=== PATIENT | female | born 1970 | race Caucasian/White ===

== ENCOUNTER 2018-07-02 19:48 | Emergency (ER) | payer OTHER, MEDICAID, SELFPAY ==
[2018-07-02 19:55] VITALS: BP 166/94; PULSE 82; RESP 18; TEMP 37.4; O2SAT 99
--- NOTE | 2018-07-02 20:40 | ED.ABDPAIN ---
HPI - Abdominal Pain <Riana Evans PA-C - Last Filed: 07/02/18 22:36> General Chief Complaint: Abdominal Pain Stated Complaint: HAD PROCEDURE THIS MORING HURTS NOW Time Seen by Provider: 07/02/18 20:03 Source: patient Mode of arrival: ambulatory Limitations: no limitations History of Present Illness HPI narrative: this 47-year-old female comes in due to exacerbation of chronic abdominal pain. She states that she has been undergoing evaluation for chronic abdominal pain in the epigastric area. She states that she has had this pain for 3 or 4 months and has had ongoing evaluation shooting lab work, ultrasound and CT with contrast. There were no specific findings, so she was undergoing endoscopy today. She states that she does not know any of the results of that procedure, but has noticed increased pain today following the procedure. She states that the is in the same place as usual in the upper abdomen. 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 She has felt somewhat full more quickly. She says she has had frequent nausea but no vomiting. She states that she has lost some weight about 10 lb since onset. She states that she has been drinking normal fluids and has eaten since she returned home today. She has had 4 episodes of diarrhea since she returned home, no blood in the stools. She does not have any chest pain or dyspnea. She states that she has chronic left-sided weakness and frequent falls which are unchanged. She is not having any throat pain, hoarseness, cough, or other new complaints such as fever. She denies any urinary symptoms. She denies any recent antibiotics or dietary changes, nor any known exposures Related Data Home Medications Medication Instructions Recorded Confirmed LEVOTHYROXINE SODIUM 100 mcg PO QDAY@0600 #0 04/09/11 citalopram 40 mg PO QDAY #0 04/09/11 lorazepam [Ativan] 0.5 mg PO QAM #0 04/09/11 lamotrigine [Lamictal] 50 mg PO BID #0 08/17/11 aspirin [Aspir-Low] 07/02/18 bupropion HCl 07/02/18 fexofenadine 1 tab PO DAILY 07/02/18 07/02/18 lorazepam PO 07/02/18 omeprazole 1 tab PO DAILY 07/02/18 07/02/18 propranolol 07/02/18 propranolol PO 07/02/18 trazodone 07/02/18 venlafaxine tab PO 07/02/18 Previous Rx's Medication Instructions Recorded nitrofurantoin monohyd/m-cryst 100 mg PO BID #14 cap 07/03/18 [Macrobid] Allergies Allergy/AdvReac Type Severity Reaction Status Date / Time Penicillins Allergy Unknown Hives Verified 07/02/18 21:10 sulfadiazine Allergy Unknown THROAT Verified 07/02/18 21:10 SWELLS divalproex sodium Allergy Verified 07/02/18 20:08 [From Depakote] lithium Allergy Verified 07/02/18 20:08 Review of Systems <Riana Evans PA-C - Last Filed: 07/02/18 22:36> Review of Systems All systems reviewed & are unremarkable except as noted in HPI and below Exam <Riana Evans PA-C - Last Filed: 07/02/18 22:36> Narrative Exam Narrative: GENERAL APPEARANCE: Patient sitting comfortably, in no distress. HEENT: PERRL, EOMI, no scleral icterus NECK: Supple LUNGS: breath sounds somewhat coarse without wheezes or crackles HEART: Rate and rhythm regular, normal S1 and S2, no S3 or S4. CHEST: Tender over the xiphoid. No TTP elsewhere, no crepitus ABDOMEN: Soft, nondistended, bowel sounds present x 4 quadrants, no masses palpable, no hepatosplenomegaly. no CVAT. Localized tenderness over the epigastrium without guarding or rebound EXTREMITIES: No edema, no cyanosis, no calf tenderness DERMATOLOGIC: No jaundice or exanthem NEUROLOGIC: Alert and oriented with normal speech and coordination Initial Vital Signs Initial Vital Signs: Vital Signs Temperature 99.4 F 07/02/18 19:55 Pulse Rate 82 07/02/18 19:55 Respiratory Rate 18 07/02/18 19:55 Blood Pressure 166/94 H 07/02/18 19:55 Pulse Oximetry 99 07/02/18 19:55 <Daniel Villasenor DO - Last Filed: 07/03/18 02:26> Initial Vital Signs Initial Vital Signs: Vital Signs Temperature 99.4 F 07/02/18 19:55 Pulse Rate 82 07/02/18 19:55 Respiratory Rate 18 07/02/18 19:55 Blood Pressure 166/94 H 07/02/18 19:55 Pulse Oximetry 99 07/02/18 19:55 Course <Riana Evans PA-C - Last Filed: 07/02/18 22:36> Orders Ordered: ED Orders 07/02/18 20:22 EKG-12 Lead Stat 07/02/18 20:40 Complete Blood Count AUTO DIFF Stat Comprehensive Metabolic Panel Stat Lipase Stat 07/02/18 20:55 XR abdomen min 2V Stat XR chest 2V Stat 07/02/18 22:10 Urine Culture Stat Urine Microscopic Stat 07/02/18 22:13 CT abdomen pelvis w con Stat Discontinued Medications Hydromorphone HCl (Dilaudid) 1 mg IV NOW ONE Stop: 07/02/18 22:14 Last Admin: 07/02/18 22:24 Dose: 1 mg Sodium Chloride (Normal Saline 0.9%) 1,000 mls @ 1,000 mls/hr IV BOLUS ONE Stop: 07/02/18 22:01 Last Infusion: 07/02/18 22:01 Dose: 0 mls/hr Admin: 07/02/18 21:19 Dose: 1,000 mls/hr Ketorolac Tromethamine (Toradol) 15 mg IV NOW ONE Stop: 07/02/18 20:56 Last Admin: 07/02/18 21:19 Dose: 15 mg Ondansetron HCl (Zofran) 4 mg IV NOW ONE Stop: 07/02/18 20:56 Last Admin: 07/02/18 21:19 Dose: 4 mg Ondansetron HCl (Zofran Odt Prepack) 1 bottle MISC SEEINSTR ONE Stop: 07/02/18 23:59 Last Admin: 07/03/18 00:13 Dose: 1 bottle Oxycodone/Acetaminophen (Endocet 5/325 Prepack) 1 bottle MISC SEEINSTR ONE Stop: 07/02/18 23:59 Last Admin: 07/03/18 00:13 Dose: 1 bottle Vital Signs - 8 hr 07/02/18 19:55 07/02/18 21:53 07/02/18 23:05 Temperature 99.4 F Pulse Rate 82 68 97 H Respiratory Rate 18 18 18 Blood Pressure 166/94 H Blood Pressure [Left Arm] 128/51 L 113/68 Pulse Oximetry 99 98 97 07/03/18 00:13 07/03/18 00:15 Temperature 99.4 F Pulse Rate 97 H 63 Respiratory Rate 18 16 Blood Pressure 166/94 H 116/52 L Blood Pressure [Left Arm] Pulse Oximetry 97 99 <Danielzayra Villasenor, - Last Filed: 07/03/18 02:26> Orders Ordered: ED Orders 07/02/18 20:22 EKG-12 Lead Stat 07/02/18 20:40 Complete Blood Count AUTO DIFF Stat Comprehensive Metabolic Panel Stat Lipase Stat 07/02/18 20:55 XR abdomen min 2V Stat XR chest 2V Stat 07/02/18 22:10 Urine Culture Stat Urine Microscopic Stat 07/02/18 22:13 CT abdomen pelvis w con Stat Discontinued Medications Hydromorphone HCl (Dilaudid) 1 mg IV NOW ONE Stop: 07/02/18 22:14 Last Admin: 07/02/18 22:24 Dose: 1 mg Sodium Chloride (Normal Saline 0.9%) 1,000 mls @ 1,000 mls/hr IV BOLUS ONE Stop: 07/02/18 22:01 Last Infusion: 07/02/18 22:01 Dose: 0 mls/hr Admin: 07/02/18 21:19 Dose: 1,000 mls/hr Ketorolac Tromethamine (Toradol) 15 mg IV NOW ONE Stop: 07/02/18 20:56 Last Admin: 07/02/18 21:19 Dose: 15 mg Ondansetron HCl (Zofran) 4 mg IV NOW ONE Stop: 07/02/18 20:56 Last Admin: 07/02/18 21:19 Dose: 4 mg Ondansetron HCl (Zofran Odt Prepack) 1 bottle MISC SEEINSTR ONE Stop: 07/02/18 23:59 Last Admin: 07/03/18 00:13 Dose: 1 bottle Oxycodone/Acetaminophen (Endocet 5/325 Prepack) 1 bottle MISC SEEINSTR ONE Stop: 07/02/18 23:59 Last Admin: 07/03/18 00:13 Dose: 1 bottle Vital Signs - 8 hr 07/02/18 19:55 07/02/18 21:53 07/02/18 23:05 Temperature 99.4 F Pulse Rate 82 68 97 H Respiratory Rate 18 18 18 Blood Pressure 166/94 H Blood Pressure [Left Arm] 128/51 L 113/68 Pulse Oximetry 99 98 97 07/03/18 00:13 07/03/18 00:15 Temperature 99.4 F Pulse Rate 97 H 63 Respiratory Rate 18 16 Blood Pressure 166/94 H 116/52 L Blood Pressure [Left Arm] Pulse Oximetry 97 99 MDM - Abdominal Pain <Riana Evans PA-C - Last Filed: 07/02/18 22:36> Lab Data Attestation: I reviewed the patient's lab results. Result diagrams: 07/02/18 20:40 07/02/18 20:40 Lab Results 07/02/18 07/02/18 07/02/18 Range/Units 20:40 20:40 22:10 WBC 7.6 (4.5-11.0) X10^3/uL RBC 4.51 (4.0-5.2) X10^6/uL Hgb 13.6 (12.0-16.0) g/dL Hct 40.3 (36-46) % MCV 89.4 (80-100) fL MCH 30.2 (26-34) PG MCHC 33.8 (30-36) % RDW 14.3 (11.6-14.8) % Plt Count 222 (150-400) X10^3/uL Neut % (Auto) 56.3 (50-75) % Lymph % (Auto) 37.2 (25-40) % Allen % (Auto) 5.0 (3-14) % Eos % (Auto) 0.0 L (2-4) % Baso % (Auto) 1.5 (0-2) % Neut # (Auto) 4300 (6970-2104) /uL Sodium 143 (137-145) mmol/L Potassium 3.9 (3.4-5.1) mmol/L Chloride 105 (98-107) mmol/L Carbon Dioxide 26 (22-32) mmol/L BUN 13 (7-17) mg/dL Creatinine 1.30 H (0.52-1.04) mg/dL Estimated GFR 43.5 L (>60) mL/min BUN/Creatinine Ratio 10.0 (6-22) Glucose 101 H (70-100) mg/dL Calcium 9.5 (8.4-10.2) mg/dL Total Bilirubin 0.4 (0.2-1.3) mg/dL AST 17 (14-36) IU/L ALT 18 (9-52) IU/L Alkaline Phosphatase 103 (38-126) U/L Total Protein 6.3 (6.3-8.2) g/dL Albumin 4.0 (3.5-5.0) g/dL Globulin 2.3 (1.7-4.1) g/dL Albumin/Globulin Ratio 1.7 (1.0-2.8) Lipase 77 (23-300) U/L Urine RBC None seen (0-5/HPF) Urine WBC 10-30/hpf H (0-5/HPF) Ur Squamous Epith Cells 1-5 /hpf Urine Bacteria Many (>30) H (None) Ur Culture Indicated? Specimen cultured Micro UA Comment Not Reportable Point of care testing: Urine Dip Bedside Urine Glucose Negative Bedside Urine Bilirubin - Negative Bedside Urine Ketone - Negative Urine Specific [place] 1.020 Bedside Urine Occult Blood - Negative Bedside Urine pH 6.0 Bedside Urine Protein - Negative Bedside Urine Urobilinogen - Negative Bedside Urine Nitrite - Negative Bedside Urine Leukocytes +++ 500 Esterase Imaging Data Abdominal x-ray: Radiologist's impression: [place] [address] XRay Report Signed Patient: Nela Cantor LMR#: [id number] : 1970Acct:[id number] Age/Sex: 47 / FDate of Service: 07/02/18 Loc: ED Accession Number: [id number] Procedure: XR abdomen min 2V Ordering Provider: Riana Evans P.A-C PROCEDURE: XR ABDOMEN MIN 2V INDICATIONS: pain,chronic with exacerbation, epigastric TECHNIQUE: 2 views of the abdomen were acquired. COMPARISON: None. FINDINGS: Surgical changes and devices: None. Bowel: No pneumoperitoneum. The bowel gas pattern is normal. Mild stool in the right colon. Soft tissues: No masses; visualized solid organ contours appear normal in size. No suspicious abdominal calcifications. Bones: No suspicious bony abnormalities. IMPRESSION: No bowel obstruction. Mild stool Dictated by: Daljit Mcelroy M.D. on 07/02/2018 at 22:02 Approved by: Daljit Mcelroy M.D. on 07/02/2018 at 22:03 Chest x-ray: Radiologist's impression: [address] [address] XRay Report Signed Patient: Nela Cantor LMR#: [id number] : 1970Acct:[id number] Age/Sex: 47 / FDate of Service: 07/02/18 Loc: ED Accession Number: [id number] Procedure: XR abdomen min 2V Ordering Provider: Riana Evans P.A-C PROCEDURE: XR ABDOMEN MIN 2V INDICATIONS: pain,chronic with exacerbation, epigastric TECHNIQUE: 2 views of the abdomen were acquired. COMPARISON: None. FINDINGS: Surgical changes and devices: None. Bowel: No pneumoperitoneum. The bowel gas pattern is normal. Mild stool in the right colon. Soft tissues: No masses; visualized solid organ contours appear normal in size. No suspicious abdominal calcifications. Bones: No suspicious bony abnormalities. IMPRESSION: No bowel obstruction. Mild stool Dictated by: Daljit Mcelroy M.D. on 07/02/2018 at 22:02 Approved by: Daljit Mcelroy M.D. on 07/02/2018 at 22:03 ECG Data Attestation: I personally reviewed and interpreted this ECG as follows: ( sinus arrhythmia, normal axis ) Prior ECG tracings: not available for review <Daniel Villasenor DO - Last Filed: 07/03/18 02:26> Differential Diagnosis Differential diagnosis: Likely abdominal pain Medical Records Attestation: I reviewed the patient's medical records. Lab Data Attestation: I reviewed the patient's lab results. Lab Results 07/02/18 07/02/18 07/02/18 Range/Units 20:40 20:40 22:10 WBC 7.6 (4.5-11.0) X10^3/uL RBC 4.51 (4.0-5.2) X10^6/uL Hgb 13.6 (12.0-16.0) g/dL Hct 40.3 (36-46) % MCV 89.4 (80-100) fL MCH 30.2 (26-34) PG MCHC 33.8 (30-36) % RDW 14.3 (11.6-14.8) % Plt Count 222 (150-400) X10^3/uL Neut % (Auto) 56.3 (50-75) % Lymph % (Auto) 37.2 (25-40) % Allen % (Auto) 5.0 (3-14) % Eos % (Auto) 0.0 L (2-4) % Baso % (Auto) 1.5 (0-2) % Neut # (Auto) 4300 (9343-2991) /uL Sodium 143 (137-145) mmol/L Potassium 3.9 (3.4-5.1) mmol/L Chloride 105 (98-107) mmol/L Carbon Dioxide 26 (22-32) mmol/L BUN 13 (7-17) mg/dL Creatinine 1.30 H (0.52-1.04) mg/dL Estimated GFR 43.5 L (>60) mL/min BUN/Creatinine Ratio 10.0 (6-22) Glucose 101 H (70-100) mg/dL Calcium 9.5 (8.4-10.2) mg/dL Total Bilirubin 0.4 (0.2-1.3) mg/dL AST 17 (14-36) IU/L ALT 18 (9-52) IU/L Alkaline Phosphatase 103 (38-126) U/L Total Protein 6.3 (6.3-8.2) g/dL Albumin 4.0 (3.5-5.0) g/dL Globulin 2.3 (1.7-4.1) g/dL Albumin/Globulin Ratio 1.7 (1.0-2.8) Lipase 77 (23-300) U/L Urine RBC None seen (0-5/HPF) Urine WBC 10-30/hpf H (0-5/HPF) Ur Squamous Epith Cells 1-5 /hpf Urine Bacteria Many (>30) H (None) Ur Culture Indicated? Specimen cultured Micro UA Comment Not Reportable Point of care testing: Urine Dip Bedside Urine Glucose Negative Bedside Urine Bilirubin - Negative Bedside Urine Ketone - Negative Urine Specific [place] 1.020 Bedside Urine Occult Blood - Negative Bedside Urine pH 6.0 Bedside Urine Protein - Negative Bedside Urine Urobilinogen - Negative Bedside Urine Nitrite - Negative Bedside Urine Leukocytes +++ [address] scan - abdomen: Radiologist's impression: [facility] Discharge Plan Departure Patient Disposition: Home Clinical Impression: Abdominal pain, acute, epigastric, UTI (urinary tract infection) Discharge Date/Time: 07/03/18 00:40 Interventions: ED Discharge Assessment Last Done: 07/03/18 00:15 Instructions: DI for Epigastric Pain Activity Restrictions/Additional Instructions: 1. Drink plenty of fluids with frequent small sips. 2. For the next 24 hours a clear liquid diet is advised. After that please employ a brat diet which would include bananas, rice, apples, toast. 3. Please take medications as directed. 4. Please follow-up with your doctor in the next 1-2 days. Call the office for an appointment. 5. Please return to the emergency Department for any worsening or persistent symptoms, such as increasing pain or fever. Prescriptions: New nitrofurantoin monohyd/m-cryst [Macrobid] 100 mg capsule 100 mg PO BID Qty: 14 RF: 0 No Action lorazepam [Ativan] 0.5 MG tablet 0.5 mg PO QAM Qty: 0 RF: 0 LEVOTHYROXINE SODIUM 100 mcg PO QDAY@0600 Qty: 0 RF: 0 citalopram 40 MG tablet 40 mg PO QDAY Qty: 0 RF: 0 lamotrigine [Lamictal] 25 MG tablet 50 mg PO BID Qty: 0 RF: 0 fexofenadine 180 mg tablet 1 tab PO DAILY RF: 0 omeprazole 20 mg tablet,delayed release (DR/EC) 1 tab PO DAILY RF: 0 venlafaxine 150 mg capsule,extended release 24hr PO RF: 0 propranolol 40 mg tablet PO RF: 0 bupropion HCl 200 mg tablet sustained-release 12 hr RF: 0 lorazepam 1 mg tablet PO RF: 0 trazodone 100 mg tablet RF: 0 aspirin [Aspir-Low] 81 mg tablet,delayed release (DR/EC) RF: 0 propranolol 40 mg tablet RF: 0 Referrals: Beatrice Irvin ARNP [Non-Staff] - ED Cosign/Signout <Riana Evans PA-C - Last Filed: 07/02/18 22:36> Sign Out Provider Sign Out Attestation: patient had improved initially after Zofran and Toradol, however after she got up to use the restroom, she had acutely worsening epigastric pain. No acute findings on lab work or x-rays, however reviewed with Dr. Villasenor who agrees reasonable to proceed with abdominal CT given patient's acutely worsening symptoms after endoscopy. She did have white cells in her urine so micro is pending as well. Dilaudid ordered for pain. He will evaluate patient and review CT results. <Daniel Villasenor, DO - Last Filed: 07/03/18 02:26> Cosign ED Attending Cosignature Attestation: I was immediately available in the department for consultation. Documentation has been reviewed. I agree with assessment and plan.
--- NOTE | 2018-07-02 20:55 | DI.RAD.S_ITS ---
PROCEDURE: XR CHEST 2V INDICATIONS: xiphoid and epigastric pain TECHNIQUE: 2 views of the chest were acquired. COMPARISON: None. FINDINGS: Surgical changes and devices: None. Lungs and pleura: No pleural effusions or pneumothorax. Diffuse scarring/atelectasis. No acute consolidation. Mediastinum: Mediastinal contours are normal. Heart size is normal. Bones and chest wall: No suspicious bony abnormalities. Soft tissues appear unremarkable. IMPRESSION: No acute consolidation. Dictated by: Daljit Mcelroy M.D. on 07/02/2018 at 22:01 Approved by: Daljit Mcelroy M.D. on 07/02/2018 at 22:02
--- NOTE | 2018-07-02 20:55 | DI.RAD.S_ITS ---
PROCEDURE: XR ABDOMEN MIN 2V INDICATIONS: pain,chronic with exacerbation, epigastric TECHNIQUE: 2 views of the abdomen were acquired. COMPARISON: None. FINDINGS: Surgical changes and devices: None. Bowel: No pneumoperitoneum. The bowel gas pattern is normal. Mild stool in the right colon. Soft tissues: No masses; visualized solid organ contours appear normal in size. No suspicious abdominal calcifications. Bones: No suspicious bony abnormalities. IMPRESSION: No bowel obstruction. Mild stool Dictated by: Daljit Mcelroy M.D. on 07/02/2018 at 22:02 Approved by: Daljit Mcelroy M.D. on 07/02/2018 at 22:03
--- NOTE | 2018-07-02 21:09 | ED_ITS ---
HPI - Abdominal Pain <Riana Evans PA-C - Last Filed: 07/02/18 22:36> General Chief Complaint: Abdominal Pain Stated Complaint: HAD PROCEDURE THIS MORING HURTS NOW Time Seen by Provider: 07/02/18 20:03 Source: patient Mode of arrival: ambulatory Limitations: no limitations History of Present Illness HPI narrative: this 47-year-old female comes in due to exacerbation of chronic abdominal pain. She states that she has been undergoing evaluation for chronic abdominal pain in the epigastric area. She states that she has had this pain for 3 or 4 months and has had ongoing evaluation shooting lab work, ultrasound and CT with contrast. There were no specific findings, so she was undergoing endoscopy today. She states that she does not know any of the results of that procedure, but has noticed increased pain today following the procedure. She states that the is in the same place as usual in the upper abdomen. over the intermission coordinator, it has increased with bending at the waist or lifting heavy objects as well as eating some acidic foods except for drinking lemonade. She has felt somewhat full more quickly. She says she has had frequent nausea but no vomiting. She states that she has lost some weight about 10 lb since onset. She states that she has been drinking normal fluids and has eaten since she returned home today. She has had 4 episodes of diarrhea since she returned home, no blood in the stools. She does not have any chest pain or dyspnea. She states that she has chronic left-sided weakness and frequent falls which are unchanged. She is not having any throat pain, hoarseness, cough, or other new complaints such as fever. She denies any urinary symptoms. She denies any recent antibiotics or dietary changes, nor any known exposures Related Data Home Medications Medication Instructions Recorded Confirmed LEVOTHYROXINE SODIUM 100 mcg PO QDAY@0600 #0 04/09/11 citalopram 40 mg PO QDAY #0 04/09/11 lorazepam [Ativan] 0.5 mg PO QAM #0 04/09/11 lamotrigine [Lamictal] 50 mg PO BID #0 08/17/11 aspirin [Aspir-Low] 07/02/18 bupropion HCl 07/02/18 fexofenadine 1 tab PO DAILY 07/02/18 07/02/18 lorazepam PO 07/02/18 omeprazole 1 tab PO DAILY 07/02/18 07/02/18 propranolol 07/02/18 propranolol PO 07/02/18 trazodone 07/02/18 venlafaxine tab PO 07/02/18 Previous Rx's Medication Instructions Recorded nitrofurantoin monohyd/m-cryst 100 mg PO BID #14 cap 07/03/18 [Macrobid] Allergies Allergy/AdvReac Type Severity Reaction Status Date / Time Penicillins Allergy Unknown Hives Verified 07/02/18 21:10 sulfadiazine Allergy Unknown THROAT Verified 07/02/18 21:10 SWELLS divalproex sodium Allergy Verified 07/02/18 20:08 [From Depakote] lithium Allergy Verified 07/02/18 20:08 Review of Systems <Riana Evans PA-C - Last Filed: 07/02/18 22:36> Review of Systems All systems reviewed & are unremarkable except as noted in HPI and below Exam <Riana Evans PA-C - Last Filed: 07/02/18 22:36> Narrative Exam Narrative: GENERAL APPEARANCE: Patient sitting comfortably, in no distress. HEENT: PERRL, EOMI, no scleral icterus NECK: Supple LUNGS: breath sounds somewhat coarse without wheezes or crackles HEART: Rate and rhythm regular, normal S1 and S2, no S3 or S4. CHEST: Tender over the xiphoid. No TTP elsewhere, no crepitus ABDOMEN: Soft, nondistended, bowel sounds present x 4 quadrants, no masses palpable, no hepatosplenomegaly. no CVAT. Localized tenderness over the epigastrium without guarding or rebound EXTREMITIES: No edema, no cyanosis, no calf tenderness DERMATOLOGIC: No jaundice or exanthem NEUROLOGIC: Alert and oriented with normal speech and coordination Initial Vital Signs Initial Vital Signs: Vital Signs Temperature 99.4 F 07/02/18 19:55 Pulse Rate 82 07/02/18 19:55 Respiratory Rate 18 07/02/18 19:55 Blood Pressure 166/94 H 07/02/18 19:55 Pulse Oximetry 99 07/02/18 19:55 <Daniel Villasenor DO - Last Filed: 07/03/18 02:26> Initial Vital Signs Initial Vital Signs: Vital Signs Temperature 99.4 F 07/02/18 19:55 Pulse Rate 82 07/02/18 19:55 Respiratory Rate 18 07/02/18 19:55 Blood Pressure 166/94 H 07/02/18 19:55 Pulse Oximetry 99 07/02/18 19:55 Course <Riana Evans PA-C - Last Filed: 07/02/18 22:36> Orders Ordered: ED Orders 07/02/18 20:22 EKG-12 Lead Stat 07/02/18 20:40 Complete Blood Count AUTO DIFF Stat Comprehensive Metabolic Panel Stat Lipase Stat 07/02/18 20:55 XR abdomen min 2V Stat XR chest 2V Stat 07/02/18 22:10 Urine Culture Stat Urine Microscopic Stat 07/02/18 22:13 CT abdomen pelvis w con Stat Discontinued Medications Hydromorphone HCl (Dilaudid) 1 mg IV NOW ONE Stop: 07/02/18 22:14 Last Admin: 07/02/18 22:24 Dose: 1 mg Sodium Chloride (Normal Saline 0.9%) 1,000 mls @ 1,000 mls/hr IV BOLUS ONE Stop: 07/02/18 22:01 Last Infusion: 07/02/18 22:01 Dose: 0 mls/hr Admin: 07/02/18 21:19 Dose: 1,000 mls/hr Ketorolac Tromethamine (Toradol) 15 mg IV NOW ONE Stop: 07/02/18 20:56 Last Admin: 07/02/18 21:19 Dose: 15 mg Ondansetron HCl (Zofran) 4 mg IV NOW ONE Stop: 07/02/18 20:56 Last Admin: 07/02/18 21:19 Dose: 4 mg Ondansetron HCl (Zofran Odt Prepack) 1 bottle MISC SEEINSTR ONE Stop: 07/02/18 23:59 Last Admin: 07/03/18 00:13 Dose: 1 bottle Oxycodone/Acetaminophen (Endocet 5/325 Prepack) 1 bottle MISC SEEINSTR ONE Stop: 07/02/18 23:59 Last Admin: 07/03/18 00:13 Dose: 1 bottle Vital Signs - 8 hr 07/02/18 19:55 07/02/18 21:53 07/02/18 23:05 Temperature 99.4 F Pulse Rate 82 68 97 H Respiratory Rate 18 18 18 Blood Pressure 166/94 H Blood Pressure [Left Arm] 128/51 L 113/68 Pulse Oximetry 99 98 97 07/03/18 00:13 07/03/18 00:15 Temperature 99.4 F Pulse Rate 97 H 63 Respiratory Rate 18 16 Blood Pressure 166/94 H 116/52 L Blood Pressure [Left Arm] Pulse Oximetry 97 99 <Danielzayar Villasenor, - Last Filed: 07/03/18 02:26> Orders Ordered: ED Orders 07/02/18 20:22 EKG-12 Lead Stat 07/02/18 20:40 Complete Blood Count AUTO DIFF Stat Comprehensive Metabolic Panel Stat Lipase Stat 07/02/18 20:55 XR abdomen min 2V Stat XR chest 2V Stat 07/02/18 22:10 Urine Culture Stat Urine Microscopic Stat 07/02/18 22:13 CT abdomen pelvis w con Stat Discontinued Medications Hydromorphone HCl (Dilaudid) 1 mg IV NOW ONE Stop: 07/02/18 22:14 Last Admin: 07/02/18 22:24 Dose: 1 mg Sodium Chloride (Normal Saline 0.9%) 1,000 mls @ 1,000 mls/hr IV BOLUS ONE Stop: 07/02/18 22:01 Last Infusion: 07/02/18 22:01 Dose: 0 mls/hr Admin: 07/02/18 21:19 Dose: 1,000 mls/hr Ketorolac Tromethamine (Toradol) 15 mg IV NOW ONE Stop: 07/02/18 20:56 Last Admin: 07/02/18 21:19 Dose: 15 mg Ondansetron HCl (Zofran) 4 mg IV NOW ONE Stop: 07/02/18 20:56 Last Admin: 07/02/18 21:19 Dose: 4 mg Ondansetron HCl (Zofran Odt Prepack) 1 bottle MISC SEEINSTR ONE Stop: 07/02/18 23:59 Last Admin: 07/03/18 00:13 Dose: 1 bottle Oxycodone/Acetaminophen (Endocet 5/325 Prepack) 1 bottle MISC SEEINSTR ONE Stop: 07/02/18 23:59 Last Admin: 07/03/18 00:13 Dose: 1 bottle Vital Signs - 8 hr 07/02/18 19:55 07/02/18 21:53 07/02/18 23:05 Temperature 99.4 F Pulse Rate 82 68 97 H Respiratory Rate 18 18 18 Blood Pressure 166/94 H Blood Pressure [Left Arm] 128/51 L 113/68 Pulse Oximetry 99 98 97 07/03/18 00:13 07/03/18 00:15 Temperature 99.4 F Pulse Rate 97 H 63 Respiratory Rate 18 16 Blood Pressure 166/94 H 116/52 L Blood Pressure [Left Arm] Pulse Oximetry 97 99 MDM - Abdominal Pain <Riana Evans PA-C - Last Filed: 07/02/18 22:36> Lab Data Attestation: I reviewed the patient's lab results. Result diagrams: 07/02/18 20:40 07/02/18 20:40 Lab Results 07/02/18 07/02/18 07/02/18 Range/Units 20:40 20:40 22:10 WBC 7.6 (4.5-11.0) X10^3/uL RBC 4.51 (4.0-5.2) X10^6/uL Hgb 13.6 (12.0-16.0) g/dL Hct 40.3 (36-46) % MCV 89.4 (80-100) fL MCH 30.2 (26-34) PG MCHC 33.8 (30-36) % RDW 14.3 (11.6-14.8) % Plt Count 222 (150-400) X10^3/uL Neut % (Auto) 56.3 (50-75) % Lymph % (Auto) 37.2 (25-40) % [place] % (Auto) 5.0 (3-14) % Eos % (Auto) 0.0 L (2-4) % Baso % (Auto) 1.5 (0-2) % Neut # (Auto) 4300 (8144-3643) /uL Sodium 143 (137-145) mmol/L Potassium 3.9 (3.4-5.1) mmol/L Chloride 105 (98-107) mmol/L Carbon Dioxide 26 (22-32) mmol/L BUN 13 (7-17) mg/dL Creatinine 1.30 H (0.52-1.04) mg/dL Estimated GFR 43.5 L (>60) mL/min BUN/Creatinine Ratio 10.0 (6-22) Glucose 101 H (70-100) mg/dL Calcium 9.5 (8.4-10.2) mg/dL Total Bilirubin 0.4 (0.2-1.3) mg/dL AST 17 (14-36) IU/L ALT 18 (9-52) IU/L Alkaline Phosphatase 103 (38-126) U/L Total Protein 6.3 (6.3-8.2) g/dL Albumin 4.0 (3.5-5.0) g/dL Globulin 2.3 (1.7-4.1) g/dL Albumin/Globulin Ratio 1.7 (1.0-2.8) Lipase 77 (23-300) U/L Urine RBC None seen (0-5/HPF) Urine WBC 10-30/hpf H (0-5/HPF) Ur Squamous Epith Cells 1-5 /hpf Urine Bacteria Many (>30) H (None) Ur Culture Indicated? Specimen cultured Micro UA Comment Not Reportable Point of care testing: Urine Dip Bedside Urine Glucose Negative Bedside Urine Bilirubin - Negative Bedside Urine Ketone - Negative Urine Specific [place] 1.020 Bedside Urine Occult Blood - Negative Bedside Urine pH 6.0 Bedside Urine Protein - Negative Bedside Urine Urobilinogen - Negative Bedside Urine Nitrite - Negative Bedside Urine Leukocytes +++ 500 Esterase Imaging Data Abdominal x-ray: Radiologist's impression: [place] [address] XRay Report Signed Patient: Nela Cantor LMR#: [id number] : 1970Acct:[id number] Age/Sex: 47 / FDate of Service: 07/02/18 Loc: ED Accession Number: [id number] Procedure: XR abdomen min 2V Ordering Provider: Riana Evans P.A-C PROCEDURE: XR ABDOMEN MIN 2V INDICATIONS: pain,chronic with exacerbation, epigastric TECHNIQUE: 2 views of the abdomen were acquired. COMPARISON: None. FINDINGS: Surgical changes and devices: None. Bowel: No pneumoperitoneum. The bowel gas pattern is normal. Mild stool in the right colon. Soft tissues: No masses; visualized solid organ contours appear normal in size. No suspicious abdominal calcifications. Bones: No suspicious bony abnormalities. IMPRESSION: No bowel obstruction. Mild stool Dictated by: Daljit Mcelroy M.D. on 07/02/2018 at 22:02 Approved by: Daljit Mcelroy M.D. on 07/02/2018 at 22:03 Chest x-ray: Radiologist's impression: [address] [address] XRay Report Signed Patient: Nela Cantor LMR#: [id number] : 1970Acct:[id number] Age/Sex: 47 / FDate of Service: 07/02/18 Loc: ED Accession Number: [id number] Procedure: XR abdomen min 2V Ordering Provider: Riana Evans P.A-C PROCEDURE: XR ABDOMEN MIN 2V INDICATIONS: pain,chronic with exacerbation, epigastric TECHNIQUE: 2 views of the abdomen were acquired. COMPARISON: None. FINDINGS: Surgical changes and devices: None. Bowel: No pneumoperitoneum. The bowel gas pattern is normal. Mild stool in the right colon. Soft tissues: No masses; visualized solid organ contours appear normal in size. No suspicious abdominal calcifications. Bones: No suspicious bony abnormalities. IMPRESSION: No bowel obstruction. Mild stool Dictated by: Daljit Mcelroy M.D. on 07/02/2018 at 22:02 Approved by: Daljit Mcelroy M.D. on 07/02/2018 at 22:03 ECG Data Attestation: I personally reviewed and interpreted this ECG as follows: ( sinus arrhythmia, normal axis ) Prior ECG tracings: not available for review <Daniel Villasenor DO - Last Filed: 07/03/18 02:26> Differential Diagnosis Differential diagnosis: Likely abdominal pain Medical Records Attestation: I reviewed the patient's medical records. Lab Data Attestation: I reviewed the patient's lab results. Lab Results 07/02/18 07/02/18 07/02/18 Range/Units 20:40 20:40 22:10 WBC 7.6 (4.5-11.0) X10^3/uL RBC 4.51 (4.0-5.2) X10^6/uL Hgb 13.6 (12.0-16.0) g/dL Hct 40.3 (36-46) % MCV 89.4 (80-100) fL MCH 30.2 (26-34) PG MCHC 33.8 (30-36) % RDW 14.3 (11.6-14.8) % Plt Count 222 (150-400) X10^3/uL Neut % (Auto) 56.3 (50-75) % Lymph % (Auto) 37.2 (25-40) % [place] % (Auto) 5.0 (3-14) % Eos % (Auto) 0.0 L (2-4) % Baso % (Auto) 1.5 (0-2) % Neut # (Auto) 4300 (7142-2620) /uL Sodium 143 (137-145) mmol/L Potassium 3.9 (3.4-5.1) mmol/L Chloride 105 (98-107) mmol/L Carbon Dioxide 26 (22-32) mmol/L BUN 13 (7-17) mg/dL Creatinine 1.30 H (0.52-1.04) mg/dL Estimated GFR 43.5 L (>60) mL/min BUN/Creatinine Ratio 10.0 (6-22) Glucose 101 H (70-100) mg/dL Calcium 9.5 (8.4-10.2) mg/dL Total Bilirubin 0.4 (0.2-1.3) mg/dL AST 17 (14-36) IU/L ALT 18 (9-52) IU/L Alkaline Phosphatase 103 (38-126) U/L Total Protein 6.3 (6.3-8.2) g/dL Albumin 4.0 (3.5-5.0) g/dL Globulin 2.3 (1.7-4.1) g/dL Albumin/Globulin Ratio 1.7 (1.0-2.8) Lipase 77 (23-300) U/L Urine RBC None seen (0-5/HPF) Urine WBC 10-30/hpf H (0-5/HPF) Ur Squamous Epith Cells 1-5 /hpf Urine Bacteria Many (>30) H (None) Ur Culture Indicated? Specimen cultured Micro UA Comment Not Reportable Point of care testing: Urine Dip Bedside Urine Glucose Negative Bedside Urine Bilirubin - Negative Bedside Urine Ketone - Negative Urine Specific [place] 1.020 Bedside Urine Occult Blood - Negative Bedside Urine pH 6.0 Bedside Urine Protein - Negative Bedside Urine Urobilinogen - Negative Bedside Urine Nitrite - Negative Bedside Urine Leukocytes +++ [address] scan - abdomen: Radiologist's impression: NAP Discharge Plan Departure Patient Disposition: Home Clinical Impression: Abdominal pain, acute, epigastric, UTI (urinary tract infection) Discharge Date/Time: 07/03/18 00:40 Interventions: ED Discharge Assessment Last Done: 07/03/18 00:15 Instructions: DI for Epigastric Pain Activity Restrictions/Additional Instructions: 1. Drink plenty of fluids with frequent small sips. 2. For the next 24 hours a clear liquid diet is advised. After that please employ a brat diet which would include bananas, rice, apples, toast. 3. Please take medications as directed. 4. Please follow-up with your doctor in the next 1-2 days. Call the office for an appointment. 5. Please return to the emergency Department for any worsening or persistent symptoms, such as increasing pain or fever. Prescriptions: New nitrofurantoin monohyd/m-cryst [Macrobid] 100 mg capsule 100 mg PO BID Qty: 14 RF: 0 No Action lorazepam [Ativan] 0.5 MG tablet 0.5 mg PO QAM Qty: 0 RF: 0 LEVOTHYROXINE SODIUM 100 mcg PO QDAY@0600 Qty: 0 RF: 0 citalopram 40 MG tablet 40 mg PO QDAY Qty: 0 RF: 0 lamotrigine [Lamictal] 25 MG tablet 50 mg PO BID Qty: 0 RF: 0 fexofenadine 180 mg tablet 1 tab PO DAILY RF: 0 omeprazole 20 mg tablet,delayed release (DR/EC) 1 tab PO DAILY RF: 0 venlafaxine 150 mg capsule,extended release 24hr PO RF: 0 propranolol 40 mg tablet PO RF: 0 bupropion HCl 200 mg tablet sustained-release 12 hr RF: 0 lorazepam 1 mg tablet PO RF: 0 trazodone 100 mg tablet RF: 0 aspirin [Aspir-Low] 81 mg tablet,delayed release (DR/EC) RF: 0 propranolol 40 mg tablet RF: 0 Referrals: Beatrice Irvin ARNP [Non-Staff] - ED Cosign/Signout <Riana Evans PA-C - Last Filed: 07/02/18 22:36> Sign Out Provider Sign Out Attestation: patient had improved initially after Zofran and Toradol, however after she got up to use the restroom, she had acutely worsening epigastric pain. No acute findings on lab work or x-rays, however reviewed with Dr. Villasenor who agrees reasonable to proceed with abdominal CT given patient's acutely worsening symptoms after endoscopy. She did have white cells in her urine so micro is pending as well. Dilaudid ordered for pain. He will evaluate patient and review CT results. <Daniel Villasenor, DO - Last Filed: 07/03/18 02:26> Cosign ED Attending Cosignature Attestation: I was immediately available in the department for consultation. Documentation has been reviewed. I agree with assessment and plan.
[2018-07-02 21:11] LABS: Add Manual Diff / Slide Review NO; Basophils Percent Auto 1.5 % (0-2); Hematocrit 40.3 % (36-46); Hemoglobin 13.6 g/dL (12.0-16.0); Lymphocytes Percent Auto 37.2 % (25-40); Mean Corpuscular HGB Conc 33.8 % (30-36); Mean Corpuscular Hemoglobin 30.2 PG (26-34); Mean Corpuscular Volume 89.4 fL (80-100); Neutrophils Absolute Auto 4300 /uL (3000-5900); Neutrophils Percent Auto 56.3 % (50-75); Platelet Count 222 X10^3/uL (150-400); Red Blood Cell Count 4.51 X10^6/uL (4.0-5.2); Red Cell Distribution Width 14.3 % (11.6-14.8); White Blood Cell Count 7.6 X10^3/uL (4.5-11.0)
[2018-07-02 21:14] LABS: Alanine Aminotransferase 18 IU/L (9-52); Albumin Globulin Ratio 1.7 (1.0-2.8); Alkaline Phosphatase 103 U/L (38-126); Aspartate Aminotransferase 17 IU/L (14-36); Bilirubin Total 0.4 mg/dL (0.2-1.3); Blood Urea Nitrogen 13 mg/dL (7-17); Calcium 9.5 mg/dL (8.4-10.2); Carbon Dioxide 26 mmol/L (22-32); Chloride 105 mmol/L (98-107); Estimated Glomerular Filt Rate 43.5 mL/min (>60); Globulin 2.3 g/dL (1.7-4.1); Glucose 101 mg/dL (70-100); HEMOLYSIS < 15 (0-50); Lipase 77 U/L (23-300); Potassium 3.9 mmol/L (3.4-5.1); Sodium 143 mmol/L (137-145); Total Protein 6.3 g/dL (6.3-8.2)
[2018-07-02] MEDS: ONDANSETRON 4 MG/2 ML INJ IV (21:19)
[2018-07-02] MEDS: KETOROLAC 60 MG/2 ML VIAL 15 MG IV (21:19)
[2018-07-02] MEDS: SODIUM CHLORIDE 0.9% 1,000 ML 1000 ML IV (21:19)
[2018-07-02 21:53] VITALS: BP 128/51; PULSE 68; RESP 18; O2SAT 98
[2018-07-02 22:12] LABS: RBC Urine None Seen (0-5/HPF)
--- NOTE | 2018-07-02 22:13 | DI.CT.S_ITS ---
PROCEDURE: CT ABDOMEN PELVIS W CON INDICATIONS: Epigastric, xiphoid pain after endoscopy. TECHNIQUE: After the administration of intravenous contrast, 5 mm thick sections acquired from the diaphragm to the symphysis. 5 mm coronal and sagittal reformats were acquired. For radiation dose reduction, the following was used: automated exposure control, adjustment of mA and/or kV according to patient size. COMPARISON: None. FINDINGS: Image quality: Excellent. ABDOMEN: Lung bases: Lung bases are clear. Heart size is normal. Solid organs: Liver is normal in size and enhancement. Gallbladder appears normal. Biliary system is non dilated. Pancreas enhances normally. Spleen is normal in size and enhancement. No adrenal nodules. Kidneys demonstrate normal size and enhancement, without hydronephrosis. Peritoneum and bowel: Bowel loops demonstrate normal wall thickness and caliber. No free fluid or air. There is food material within the gastric lumen. Nodes and vessels: No retroperitoneal or mesenteric adenopathy by size criteria. Aorta and inferior vena cava are normal in size. Miscellaneous: No ventral hernias. PELVIS: Genitourinary: Bladder wall thickness is normal. Miscellaneous: No inguinal hernias or adenopathy. Bones: No suspicious bony lesions. No vertebral body compression fractures. IMPRESSION: Food material is present within the gastric lumen. There is no sign of post-endoscopic trauma. Additional clinical history obtained by the cardiac catheterization technologist is that food was found within her stomach during endoscopy despite following pre-endoscopic directions. Therefore, followup gastric emptying study utilizing nuclear medicine technique may be warranted. Dictated by: Michael Brown M.D. on 07/03/2018 at 9:54 Approved by: Michael Brown M.D. on 07/03/2018 at 10:04
[2018-07-02 22:20] LABS: Bacteria Urine Many (>30); Culture Indicated Urine Specimen Cultured; Squamous Epithelial Cell Urine 1-5 /HPF; WBC Urine 10-30/HPF (0-5/HPF)
[2018-07-02] MEDS: HYDROMORPHONE 1 MG INJ IV (22:24)
[2018-07-02 23:05] VITALS: BP 113/68; PULSE 97; RESP 18; O2SAT 97
[2018-07-03 00:13] VITALS: BP 166/94; PULSE 97; RESP 18; TEMP 37.4; O2SAT 97
[2018-07-03] MEDS: ONDANSETRON 4 MG ODT PREPACK 1 BOTTLE MISC (00:13)
[2018-07-03] MEDS: OXYCODONE/APAP 5/325 PREPACK 1 BOTTLE MISC (00:13)
[2018-07-03 00:15] VITALS: BP 116/52; PULSE 63; RESP 16; O2SAT 99
== END 2018-07-03 00:40 | disposition home or self-care (01) ==
PROVIDERS: Internal Medicine; Emergency Provider Emergency Medicine
DX: N39.0 Urinary tract infection, site not specified (principal); R10.13 Epigastric pain
CPT/HCPCS: 36591; 71046; 74019; 74177; 80053; 81003; 81015; 83690; 85025; 87077; 87086; 87186; 93005; 93010; 96361; 96374; 96375; 99283; 99285; J1170; J1885; J2405; Q9967

== ENCOUNTER 2018-07-03 14:46 | Emergency (ER) | payer OTHER, MEDICAID, SELFPAY ==
[2018-07-03 15:26] VITALS: BP 131/76; PULSE 83; RESP 18; TEMP 36.9; O2SAT 93; BMI 34.7
--- NOTE | 2018-07-03 16:56 | ED.ABDPAIN ---
HPI - Abdominal Pain <ESTRELLA Bowers - Last Filed: 07/03/18 21:50> General Chief Complaint: Abdominal Pain Stated Complaint: abdominal pain Time Seen by Provider: 07/03/18 18:00 Source: patient Mode of arrival: ambulatory Limitations: no limitations History of Present Illness HPI narrative: 47-year-old female With history of hypertension and is a former smoker here for complaint of chronic abdominal pain into the epigastric area for the past several months. She was seen here in the emergency room yesterday and she was also seen at [facility] yesterday and received endoscopy. Endoscopy was not able to be fully completed as stomach contents full of food. esophagus appeared normal in the endoscopy. CT was obtained yesterday and was unremarkable. Laboratory results showed urinary tract infection otherwise were unremarkable. She was given a few [place] tablets yesterday and she states that she has use those and is currently out. she denies any changes in her abdominal pain. No nausea vomiting no fevers no chills. 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 She denies any trauma to the abdomen. No other concerns or complaints. MD complaint: abdominal pain Related Data Home Medications Medication Instructions Recorded Confirmed LEVOTHYROXINE SODIUM 100 mcg PO QDAY@0600 #0 04/09/11 citalopram 40 mg PO QDAY #0 04/09/11 lorazepam [Ativan] 0.5 mg PO QAM #0 04/09/11 lamotrigine [Lamictal] 50 mg PO BID #0 08/17/11 aspirin [Aspir-Low] 07/02/18 bupropion HCl 07/02/18 fexofenadine 1 tab PO DAILY 07/02/18 07/02/18 lorazepam PO 07/02/18 omeprazole 1 tab PO DAILY 07/02/18 07/02/18 propranolol 07/02/18 propranolol PO 07/02/18 trazodone 07/02/18 venlafaxine tab PO 07/02/18 Previous Rx's Medication Instructions Recorded nitrofurantoin monohyd/m-cryst 100 mg PO BID #14 cap 07/03/18 [Macrobid] Allergies Allergy/AdvReac Type Severity Reaction Status Date / Time Penicillins Allergy Unknown Hives Verified 07/02/18 21:10 sulfadiazine Allergy Unknown THROAT Verified 07/02/18 21:10 SWELLS divalproex sodium Allergy Verified 07/02/18 20:08 [From [facility]] lithium Allergy Verified 07/02/18 20:08 Review of Systems <ESTRELLA Bowers - Last Filed: 07/03/18 21:50> Constitutional Denies chills, Denies fever(s), Denies lethargy and Denies weakness Eyes Denies change in vision, Denies eye discharge, Denies irritation and Denies loss of vision Cardiovascular Denies chest pain, Denies irregular heart rhythm, Denies lightheadedness, Denies palpitations, Denies dyspnea, Denies dyspnea on exertion and Denies orthopnea Respiratory Denies cough, Denies dyspnea, Denies dyspnea on exertion and Denies wheezing Gastrointestinal Gastrointestinal: Reports abdominal pain Genitourinary Denies hematuria, Denies flank pain, Denies urinary incontinence and Denies urinary urgency Musculoskeletal Denies back pain, Denies muscle weakness, Denies numbness and Denies tingling Integumentary/Breasts Denies pruritus, Denies erythema, Denies rash and Denies wounds Neurologic Denies confusion, Denies loss of vision, Denies numbness, Denies tingling and Denies weakness Psychiatric Denies anxiety, Denies confusion, Denies depression, Denies homicidal ideation and Denies suicidal ideation Endocrine Denies palpitations Hematologic/Lymphatic Denies easy bruising Allergic/Immunologic Denies wheezing Exam <ESTRELLA Bowers - Last Filed: 07/03/18 21:50> Initial Vital Signs Initial Vital Signs: Vital Signs Temperature 98.4 F 07/03/18 15:26 Pulse Rate 83 07/03/18 15:26 Respiratory Rate 18 07/03/18 15:26 Blood Pressure 131/76 07/03/18 15:26 Pulse Oximetry 93 07/03/18 15:26 Const General: cooperative and well developed Nutritional Appearance: well nourished Orientation: alert, awake, oriented x3 and not confused [facility] Mouth: oral mucosae normal and moist mucous membranes Eyes General: appearance normal, both eyes and all related structures Eyelids: eyelids normal Conjunctivae: conjunctivae normal Sclera: sclerae normal Pupils: PERRL EOM: EOM intact bilaterally Cardio Rate: regular rate Rhythm: regular rhythm Heart Sounds: no click, no gallops, no murmurs and no rubs Pulses: normal peripheral pulses GI Inspection: non-distended Palpation: soft, no hepatosplenomegaly, No guarding, No pulsatile mass and tender Auscultation: normal bowel sounds Other: tenderness to the epigastric area on palpation General: No CVA tenderness Skin General: no rashes or lesions noted, No jaundice and No petechiae Neuro General: alert, oriented x3, gait normal and no focal motor deficits Speech: speech normal <Daniel Villasenor DO - Last Filed: 07/03/18 23:19> Initial Vital Signs Initial Vital Signs: Vital Signs Temperature 98.4 F 07/03/18 15:26 Pulse Rate 83 07/03/18 15:26 Respiratory Rate 18 07/03/18 15:26 Blood Pressure 131/76 07/03/18 15:26 Pulse Oximetry 93 07/03/18 15:26 Course <ESTRELLA Bowers - Last Filed: 07/03/18 21:50> Orders Ordered: ED Orders 07/03/18 18:05 Complete Blood Count AUTO DIFF Stat Comprehensive Metabolic Panel Stat Lipase Stat Partial Thromboplastin Time Stat Prothrombin Time INR Stat Discontinued Medications Hydrocodone Bitart/Acetaminophen (Vicodin Prepack) 1 bottle MISC SEEINSTR ONE Stop: 07/03/18 19:44 Last Admin: 07/03/18 19:45 Dose: 1 bottle Vital Signs - 8 hr 07/03/18 15:26 07/03/18 17:00 07/03/18 18:09 Temperature 98.4 F Pulse Rate 83 48 L 72 Respiratory Rate 18 20 Blood Pressure 131/76 Blood Pressure [Left Arm] 135/69 135/67 Pulse Oximetry 93 100 07/03/18 19:30 Temperature Pulse Rate 94 H Respiratory Rate 16 Blood Pressure Blood Pressure [Left Arm] 127/77 Pulse Oximetry <DO Harjinder Marquez Last Filed: 07/03/18 23:19> Orders Ordered: ED Orders 07/03/18 18:05 Complete Blood Count AUTO DIFF Stat Comprehensive Metabolic Panel Stat Lipase Stat Partial Thromboplastin Time Stat Prothrombin Time INR Stat Discontinued Medications Hydrocodone Bitart/Acetaminophen (Vicodin Prepack) 1 bottle MISC SEEINSTR ONE Stop: 07/03/18 19:44 Last Admin: 07/03/18 19:45 Dose: 1 bottle Vital Signs - 8 hr 07/03/18 15:26 07/03/18 17:00 07/03/18 18:09 Temperature 98.4 F Pulse Rate 83 48 L 72 Respiratory Rate 18 20 Blood Pressure 131/76 Blood Pressure [Left Arm] 135/69 135/67 Pulse Oximetry 93 100 07/03/18 19:30 Temperature Pulse Rate 94 H Respiratory Rate 16 Blood Pressure Blood Pressure [Left Arm] 127/77 Pulse Oximetry MDM - Abdominal Pain <ESTRELLA Bowers - Last Filed: 07/03/18 21:50> Lab Data Result diagrams: 07/03/18 18:05 07/03/18 18:05 Lab Results 07/03/18 07/03/18 07/03/18 Range/Units 18:05 18:05 18:05 WBC 7.7 (4.5-11.0) X10^3/uL RBC 4.60 (4.0-5.2) X10^6/uL Hgb 13.8 (12.0-16.0) g/dL Hct 40.8 (36-46) % MCV 88.8 (80-100) fL MCH 29.9 (26-34) PG MCHC 33.7 (30-36) % RDW 14.2 (11.6-14.8) % Plt Count 225 (150-400) X10^3/uL Neut % (Auto) 70.5 (50-75) % Lymph % (Auto) 23.4 L (25-40) % [place] % (Auto) 5.3 (3-14) % Eos % (Auto) 0.0 L (2-4) % Baso % (Auto) 0.8 (0-2) % Neut # (Auto) 5400 (9077-9034) /uL PT 10.4 (10.1-12.7) SECONDS INR 1.0 (0.9-1.3) APTT 31 (26.4-36.2) SECONDS Sodium 143 (137-145) mmol/L Potassium 4.1 (3.4-5.1) mmol/L Chloride 104 (98-107) mmol/L Carbon Dioxide 27 (22-32) mmol/L BUN 10 (7-17) mg/dL Creatinine 1.20 H (0.52-1.04) mg/dL Estimated GFR 47.7 L (>60) mL/min BUN/Creatinine Ratio 8.3 (6-22) Glucose 83 (70-100) mg/dL Calcium 9.6 (8.4-10.2) mg/dL Total Bilirubin 0.5 (0.2-1.3) mg/dL AST 20 (14-36) IU/L ALT 22 (9-52) IU/L Alkaline Phosphatase 113 (38-126) U/L Total Protein 6.5 (6.3-8.2) g/dL Albumin 4.1 (3.5-5.0) g/dL Globulin 2.4 (1.7-4.1) g/dL Albumin/Globulin Ratio 1.7 (1.0-2.8) Lipase 51 (23-300) U/L MDM Narrative Medical decision making narrative: patient had a full complete workup yesterday and was unremarkable. Patient with same abdominal pain for the last 3 months. Recommend that she follows up with her primary care provider in the next few days for further evaluation and discussion of a repeat endoscopy and consideration for referral to a GI. she is given a small amount of [place] from a [employer]. Expressed my concern of a number of visits for her abdominal pain and the use of narcotics for the pain. patient states she does not have any pain medications at this time is currently not prescribe pain medications from her doctor in that she does not use them frequently. For any worsening symptoms return to the <Daniel Villasenor DO - Last Filed: 07/03/18 23:19> Lab Data Lab Results 07/03/18 07/03/18 07/03/18 Range/Units 18:05 18:05 18:05 WBC 7.7 (4.5-11.0) X10^3/uL RBC 4.60 (4.0-5.2) X10^6/uL Hgb 13.8 (12.0-16.0) g/dL Hct 40.8 (36-46) % MCV 88.8 (80-100) fL MCH 29.9 (26-34) PG MCHC 33.7 (30-36) % RDW 14.2 (11.6-14.8) % Plt Count 225 (150-400) X10^3/uL Neut % (Auto) 70.5 (50-75) % Lymph % (Auto) 23.4 L (25-40) % [place] % (Auto) 5.3 (3-14) % Eos % (Auto) 0.0 L (2-4) % Baso % (Auto) 0.8 (0-2) % Neut # (Auto) 5400 (4701-5599) /uL PT 10.4 (10.1-12.7) SECONDS INR 1.0 (0.9-1.3) APTT 31 (26.4-36.2) SECONDS Sodium 143 (137-145) mmol/L Potassium 4.1 (3.4-5.1) mmol/L Chloride 104 (98-107) mmol/L Carbon Dioxide 27 (22-32) mmol/L BUN 10 (7-17) mg/dL Creatinine 1.20 H (0.52-1.04) mg/dL Estimated GFR 47.7 L (>60) mL/min BUN/Creatinine Ratio 8.3 (6-22) Glucose 83 (70-100) mg/dL Calcium 9.6 (8.4-10.2) mg/dL Total Bilirubin 0.5 (0.2-1.3) mg/dL AST 20 (14-36) IU/L ALT 22 (9-52) IU/L Alkaline Phosphatase 113 (38-126) U/L Total Protein 6.5 (6.3-8.2) g/dL Albumin 4.1 (3.5-5.0) g/dL Globulin 2.4 (1.7-4.1) g/dL Albumin/Globulin Ratio 1.7 (1.0-2.8) Lipase 51 (23-300) U/L Discharge Plan Departure Patient Disposition: Home Clinical Impression: Abdominal pain Discharge Date/Time: 07/03/18 19:50 Interventions: ED Discharge Assessment Last Done: 07/03/18 19:48 Instructions: DI for Abdominal Pain-Adult Activity Restrictions/Additional Instructions: Yesterday's laboratory results and imaging showed urinary tract infection otherwise were unremarkable. emergent cause of her abdominal pain is not found. Recommend follow up with her primary care provider the next few days for re-evaluation and discussion of a repeat referral for endoscopy and consideration for referral to Gastroenterology use [id number] Tylenol as needed for any discomfort. Small amount of [place] is given for breakthrough pain no driving while on the [place]. Return emergency room for any worsening symptoms. Use antibiotics as prescribed for urinary tract infection. Plenty of fluids. Prescriptions: No Action lorazepam [Ativan] 0.5 MG tablet 0.5 mg PO QAM Qty: 0 RF: 0 LEVOTHYROXINE SODIUM 100 mcg PO QDAY@0600 Qty: 0 RF: 0 citalopram 40 MG tablet 40 mg PO QDAY Qty: 0 RF: 0 lamotrigine [Lamictal] 25 MG tablet 50 mg PO BID Qty: 0 RF: 0 fexofenadine 180 mg tablet 1 tab PO DAILY RF: 0 omeprazole 20 mg tablet,delayed release (DR/EC) 1 tab PO DAILY RF: 0 venlafaxine 150 mg capsule,extended release 24hr PO RF: 0 propranolol 40 mg tablet PO RF: 0 bupropion HCl 200 mg tablet sustained-release 12 hr RF: 0 lorazepam 1 mg tablet PO RF: 0 trazodone 100 mg tablet RF: 0 aspirin [Aspir-Low] 81 mg tablet,delayed release (DR/EC) RF: 0 propranolol 40 mg tablet RF: 0 nitrofurantoin monohyd/m-cryst [Macrobid] 100 mg capsule 100 mg PO BID Qty: 14 RF: 0 Referrals: Betarice Irvin ARNP [Non-Staff] - <Danile Villasenor DO - Last Filed: 07/03/18 23:19> Cosign ED Attending Larissa Attestation: I was immediately available in the department for consultation. Documentation has been reviewed. I agree with assessment and plan.
[2018-07-03 17:00] VITALS: BP 135/69; PULSE 48
[2018-07-03 18:09] VITALS: BP 135/67; PULSE 72; RESP 20; O2SAT 100
[2018-07-03 18:29] LABS: Add Manual Diff / Slide Review NO; Basophils Percent Auto 0.8 % (0-2); Hematocrit 40.8 % (36-46); Hemoglobin 13.8 g/dL (12.0-16.0); Lymphocytes Percent Auto 23.4 % (25-40); Mean Corpuscular HGB Conc 33.7 % (30-36); Mean Corpuscular Hemoglobin 29.9 PG (26-34); Mean Corpuscular Volume 88.8 fL (80-100); Monocytes Percent Auto 5.3 % (3-14); Neutrophils Absolute Auto 5400 /uL (3000-5900); Neutrophils Percent Auto 70.5 % (50-75); Platelet Count 225 X10^3/uL (150-400); Red Cell Distribution Width 14.2 % (11.6-14.8); White Blood Cell Count 7.7 X10^3/uL (4.5-11.0)
[2018-07-03 18:36] LABS: Prothrombin Time 10.4 SECONDS (10.1-12.7)
[2018-07-03 18:39] LABS: PTT Partial Thromboplastin Tim 31 SECONDS (26.4-36.2)
[2018-07-03 18:40] LABS: Alanine Aminotransferase 22 IU/L (9-52); Albumin 4.1 g/dL (3.5-5.0); Albumin Globulin Ratio 1.7 (1.0-2.8); Alkaline Phosphatase 113 U/L (38-126); Aspartate Aminotransferase 20 IU/L (14-36); BUN Creatinine Ratio 8.3 (6-22); Bilirubin Total 0.5 mg/dL (0.2-1.3); Blood Urea Nitrogen 10 mg/dL (7-17); Calcium 9.6 mg/dL (8.4-10.2); Carbon Dioxide 27 mmol/L (22-32); Chloride 104 mmol/L (98-107); Estimated Glomerular Filt Rate 47.7 mL/min (>60); Globulin 2.4 g/dL (1.7-4.1); Glucose 83 mg/dL (70-100); HEMOLYSIS < 15 (0-50); Lipase 51 U/L (23-300); Potassium 4.1 mmol/L (3.4-5.1); Sodium 143 mmol/L (137-145); Total Protein 6.5 g/dL (6.3-8.2)
[2018-07-03 19:30] VITALS: BP 127/77; PULSE 94; RESP 16
[2018-07-03] MEDS: HYDROCODONE/ACET 5/325 PREPACK 1 BOTTLE MISC (19:45)
== END 2018-07-03 19:50 | disposition home or self-care (01) ==
PROVIDERS: Emergency Provider Nurse Practitioner Family
DX: R10.9 Unspecified abdominal pain (principal)
CPT/HCPCS: 36591; 80053; 83690; 85025; 85610; 85730; 99283

== ENCOUNTER 2024-10-09 14:43 | Emergency (ER) | payer OTHER, SELFPAY ==
[2024-10-09] VITALS (17 sets, daily range): BP systolic 112–139; BP diastolic 55–79; PULSE 66–76; RESP 18; TEMP 36.6; O2SAT 93–100; BMI 30.1
--- NOTE | 2024-10-09 15:01 | ED.FALL ---
HPI - Fall General Chief Complaint: Fall Stated Complaint: Fall, back neck px, no blood thinners Time Seen by Provider: 10/09/24 15:01 Source: patient and family Mode of arrival: Wheelchair Related Data Home Medications Medication Instructions Recorded Confirmed aripiprazole 10 mg tablet 10 mg PO DAILY 10/14/21 10/14/21 lamotrigine 200 mg tablet 200 mg PO DAILY 10/14/21 10/14/21 levothyroxine 88 mcg tablet 88 mcg PO DAILY 10/14/21 10/14/21 pantoprazole 40 mg tablet,delayed 40 mg PO DAILY 10/14/21 10/14/21 release prazosin 5 mg capsule 5 mg PO DAILY 10/14/21 10/14/21 venlafaxine 75 mg capsule,extended 75 mg PO DAILY 10/14/21 10/14/21 release 24 hr Allergies Allergy/AdvReac Type Severity Reaction Status Date / Time Penicillins Allergy Unknown Hives Verified 08/19/24 07:30 sulfadiazine Allergy Unknown THROAT Verified 08/19/24 07:30 SWELLS divalproex sodium Allergy Verified 08/19/24 07:30 [From Depakote] lithium Allergy Verified 08/19/24 07:30 Patient History Medical History (System 08/19/24 @ 07:30 by Savanna Chandra) Frequent falls Left-sided weakness Brain aneurysm Chronic abdominal pain Seasonal allergies Generalized anxiety disorder Bipolar disorder History of hypertension History of hypothyroidism Surgical History (System 08/19/24 @ 07:30 by Savanna Chandra) History of bladder surgery Social History (System 08/19/24 @ 07:30 by Savanna Chandra) Smoking Status: Current every day smoker Smoking Status: Current every day smoker tobacco type: cigarettes alcohol intake frequency: 0-2 drinks per day Exam Initial Vital Signs Initial Vital Signs: Vital Signs Temperature 97.9 F 10/09/24 14:52 Pulse Rate 68 10/09/24 14:52 Respiratory Rate 18 10/09/24 14:52 Blood Pressure 125/79 10/09/24 14:52 Pulse Oximetry 100 10/09/24 14:52 Oxygen Delivery Method Room Air 10/09/24 14:52 Course Vital Signs Vital signs: Vital Signs - 8 hr 10/09/24 14:52 Temperature 97.9 F Pulse Rate 68 Respiratory Rate 18 Blood Pressure 125/79 Pulse Oximetry 100 Oxygen Delivery Method Room Air Discharge Plan Departure Prescriptions: No Action aripiprazole 10 mg tablet 10 mg PO DAILY prazosin 5 mg capsule 5 mg PO DAILY pantoprazole 40 mg tablet,delayed release (DR/EC) 40 mg PO DAILY lamotrigine 200 mg tablet 200 mg PO DAILY levothyroxine 88 mcg tablet 88 mcg PO DAILY venlafaxine 75 mg capsule,extended release 24hr 75 mg PO DAILY Referrals: Alee Jenkins PA-C [Primary Care Provider] -
--- NOTE | 2024-10-09 15:04 | DI.RAD.S_ITS ---
PROCEDURE: XR CHEST 1V INDICATIONS: chest pain TECHNIQUE: One view of the chest was acquired. COMPARISON: [facility], CR, XR CHEST 2V, 07/02/2018, 20:32. FINDINGS: Surgical changes and devices: None. Lungs and pleura: Lungs are clear. No pleural effusions or pneumothorax. Low lung volumes accentuate pulmonary interstitium and heart size. Mediastinum: Mediastinal contours appear normal. Heart size is normal. Bones and chest wall: No suspicious bony lesions. Overlying soft tissues appear unremarkable. IMPRESSION: No acute cardiopulmonary abnormality is seen. Approved by: Isiah Ruiz M.D. on 10/09/2024 at 14:33
--- NOTE | 2024-10-09 15:04 | DI.CT.S_ITS ---
PROCEDURE: CT HEAD/BRAIN WO CON INDICATIONS: fall/no thinners, hit head and neck TECHNIQUE: Noncontrast 4.5 mm thick angled axial sections acquired from the foramen magnum to the vertex, with coronal and sagittal reformats. For radiation dose reduction, the following was used: automated exposure control, adjustment of mA and/or kV according to patient size. COMPARISON: None. FINDINGS: Image quality: Diagnostic. CSF spaces: Basal cisterns are patent. No extra-axial fluid collections. Ventricles are normal in size and shape. Brain: No midline shift. No intracranial masses or hemorrhage. Hancock-white matter interface is normal. Skull and face: Calvarium and visualized facial bones are intact, without suspicious lesions. Sinuses: Visualized sinuses and mastoids are clear. IMPRESSION: No acute intracranial pathology. Approved by: Isiah Ruiz M.D. on 10/09/2024 at 15:16
--- NOTE | 2024-10-09 15:04 | EKG_ITS ---
[address] [place] [address] Test Date: 2024-10-09 Pat Name: Nela Mercado Department: Room: Gender: Female [employer] Swimmer: PATIENCE : 1970 Requested By: Order Number: [id number] Reading MD: Chico Lizarraga Measurements Intervals [place] Rate: 69 P: 24 VT: 166 QRS: 8 QRSD: 92 T: 35 QT: 418 QTc: 447 Interpretive Statements Normal sinus rhythm Nonspecific ST and T wave abnormality Electronically Signed On 10-12-2024 23:43:37 PST by Chico Lizarraga
[2024-10-09 16:41] LABS: Add Manual Diff / Slide Review NO; Basophils Absolute Auto 100 /uL (0-100); Eosinophils Absolute Auto 100 /uL (0-450); Hematocrit 43.2 % (36-46); Hemoglobin 14.3 g/dL (12.0-16.0); Lymphocytes Absolute Auto 1900 /uL (1100-4500); Mean Corpuscular HGB Conc 33.1 % (30-36); Mean Corpuscular Hemoglobin 31.3 PG (26-34); Mean Corpuscular Volume 94.7 fL (80-100); Monocytes Absolute Auto 400 /uL (0-900); Neutrophils Absolute Auto 5400 /uL (1500-7000); Platelet Count 218 X10^3/uL (150-400); Red Blood Cell Count 4.56 X10^6/uL (4.0-5.2); Red Cell Distribution Width 15.1 % (11.6-14.8); White Blood Cell Count 7.9 X10^3/uL (4.5-11.0)
[2024-10-09 16:42] LABS: Prothrombin Time 10.8 SECONDS (9.4-12.5)
[2024-10-09 16:45] LABS: PTT Partial Thromboplastin Tim 33 SECONDS (25.1-36.5)
[2024-10-09 16:47] LABS: Alanine Aminotransferase 14 IU/L (<35); Albumin 4.4 g/dL (3.5-5.0); Alkaline Phosphatase 93 U/L (38-126); Aspartate Aminotransferase 25 IU/L (14-36); BUN Creatinine Ratio 5.6 (6-22); Bilirubin Total 0.5 mg/dL (0.2-1.3); Blood Urea Nitrogen 9 mg/dL (7-17); Calcium 9.5 mg/dL (8.4-10.2); Carbon Dioxide 31 mmol/L (22-32); Chloride 101 mmol/L (98-107); Creatine Kinase 115 U/L (30-135); Estimated Glomerular Filt Rate 37 mL/min (>60); Globulin 2.2 g/dL (1.7-4.1); Glucose 113 mg/dL (70-100); HEMOLYSIS < 15 (0-50); Lipase 68 U/L (23-300); Magnesium 2.1 mg/dL (1.6-2.3); Potassium 3.4 mmol/L (3.4-5.1); Sodium 138 mmol/L (137-145); Total Protein 6.6 g/dL (6.3-8.2)
[2024-10-09 16:59] LABS: NT-proBNP (BNP-Adult 18+) 330 pg/mL (<125); Troponin I < 0.012 ng/mL (0.01-0.034)
[2024-10-09 17:59] LABS: Bacteria Urine Many (>30); Calcium Oxalate Crystals Urine Few; Culture Indicated Urine Specimen Cultured; Mucus Urine 1+ (Negative); RBC Urine 0-1/HPF (0-5/HPF); Squamous Epithelial Cell Urine 0-1 /HPF (0-5/HPF); Urine Volume 10mL (spun); WBC Urine >100/HPF (0-5/HPF)
--- NOTE | 2024-10-09 19:11 | DI.CT.S_ITS ---
PROCEDURE: CT LUMBAR SPINE WO CON INDICATIONS: GLF, WORSENING BACK PAIN TECHNIQUE: Noncontrast 3 mm thick sections acquired from the T12 level to the sacrum. Sagittal and coronal reformats were constructed. For radiation dose reduction, the following was used: automated exposure control. COMPARISON: None. FINDINGS: Image quality: Excellent. Bones: There is normal bony alignment. No acute vertebral body compression fractures. Diffuse osteopenia. No suspicious lytic or blastic bony lesions. No pars defects. No significant canal stenosis or foraminal stenosis. Soft tissues: No retroperitoneal masses or hematomas. Visualized aorta is normal in caliber. IMPRESSION: 1. No acute compression fractures. 2. Diffuse osteopenia. 3. No significant canal stenosis or foraminal stenosis. Dictated by: Aníbal Hagen M.D. on 10/09/2024 at 19:54 Approved by: Aníbal Hagen M.D. on 10/09/2024 at 19:57
--- NOTE | 2024-10-09 19:11 | ED_ITS ---
HPI - Fall General Chief Complaint: Fall Stated Complaint: Fall, back neck px, no blood thinners Time Seen by Provider: 10/09/24 15:01 Source: patient and family Mode of arrival: Wheelchair History of Present Illness HPI Narrative: 54-year-old female with history of chronic lumbar back pain, hypothyroidism presents from home for evaluation of fall and generalized weakness. Patient is accompanied by her daughter, who helps to care for the patient at home. Patient is weak at baseline and uses a walker to get around her house. They are pending a neurology appointment as primary is concerned about early Parkinson's disease. Patient states that her chronic weakness is even worse and she was barely able to get around the house. Today her legs gave out and she fell backwards, landing on the ground and then hitting her head. She denies loss of consciousness, denies use of blood thinners. Daughter states that she was barely able to get her up off the floor and brought her in for evaluation. Patient denies any medication changes, trauma, fevers, other complaints. Related Data Home Medications Medication Instructions Recorded Confirmed aripiprazole 10 mg tablet 10 mg PO DAILY 10/14/21 10/14/21 lamotrigine 200 mg tablet 200 mg PO DAILY 10/14/21 10/14/21 levothyroxine 88 mcg tablet 88 mcg PO DAILY 10/14/21 10/14/21 pantoprazole 40 mg tablet,delayed 40 mg PO DAILY 10/14/21 10/14/21 release prazosin 5 mg capsule 5 mg PO DAILY 10/14/21 10/14/21 venlafaxine 75 mg capsule,extended 75 mg PO DAILY 10/14/21 10/14/21 release 24 hr Previous Rx's Medication Instructions Recorded cephalexin 500 mg capsule 500 mg PO Q12H #10 caps 10/09/24 Allergies Allergy/AdvReac Type Severity Reaction Status Date / Time Penicillins Allergy Unknown Hives Verified 08/19/24 07:30 sulfadiazine Allergy Unknown THROAT Verified 08/19/24 07:30 SWELLS divalproex sodium Allergy Verified 08/19/24 07:30 [From Depakote] lithium Allergy Verified 08/19/24 07:30 Patient History Medical History Frequent falls Left-sided weakness Brain aneurysm Chronic abdominal pain Seasonal allergies Generalized anxiety disorder Bipolar disorder History of hypertension History of hypothyroidism Surgical History History of bladder surgery Social History Smoking Status: Former smoker Smoking Status: Former smoker tobacco type: cigarettes alcohol intake frequency: 0-2 drinks per day Exam Initial Vital Signs Initial Vital Signs: Vital Signs Temperature 97.9 F 10/09/24 14:52 Pulse Rate 68 10/09/24 14:52 Respiratory Rate 18 10/09/24 14:52 Blood Pressure 125/79 10/09/24 14:52 Pulse Oximetry 100 10/09/24 14:52 Oxygen Delivery Method Room Air 10/09/24 14:52 Const: Awake, alert, no acute distress, appears chronically unwell, older than stated age Cardiac: regular rate, regular rhythm RESP: unlabored, clear bilaterally, no wheezing MSK: Atraumatic, full range of motion, pulses equal Skin: Warm, Dry, intact, no rashes Neuro: AO x3, CN II-XII grossly intact, moves all extremities Course Orders Ordered: ED Orders 10/09/24 19:11 CT cervical spine wo con Stat CT lumbar spine wo con Stat Discontinued Medications Ceftriaxone Sodium 2,000 mg/ (Sodium Chloride) 100 mls @ 200 mls/hr IV NOW ONE Stop: 10/09/24 21:34 Last Infusion: 10/09/24 22:24 Dose: Infused Documented By: Admin: 10/09/24 21:48 Dose: 200 mls/hr Documented By: CINDI Vital Signs Vital signs: Vital Signs - 8 hr 10/09/24 18:50 10/09/24 18:50 10/09/24 19:00 Pulse Rate 76 68 Respiratory Rate Blood Pressure 139/64 Pulse Oximetry 96 98 Oxygen Delivery Method 10/09/24 19:33 10/09/24 19:34 10/09/24 19:34 Pulse Rate 74 75 Respiratory Rate Blood Pressure 128/66 Pulse Oximetry 94 96 Oxygen Delivery Method 10/09/24 20:00 10/09/24 20:00 10/09/24 20:30 Pulse Rate 68 Respiratory Rate Blood Pressure 119/57 L 118/65 Pulse Oximetry 93 Oxygen Delivery Method 10/09/24 20:30 10/09/24 21:00 10/09/24 21:00 Pulse Rate 66 66 Respiratory Rate Blood Pressure 119/57 L Pulse Oximetry 97 96 Oxygen Delivery Method 10/09/24 21:30 10/09/24 21:30 10/09/24 22:38 Pulse Rate 71 Respiratory Rate 18 Blood Pressure 112/55 L 117/64 Pulse Oximetry 93 Oxygen Delivery Method 10/09/24 22:38 10/09/24 22:42 Pulse Rate 75 75 Respiratory Rate 18 Blood Pressure 117/64 Pulse Oximetry 96 96 Oxygen Delivery Method Room Air Room Air MDM - Fall Lab Data 10/09/24 16:29 10/09/24 16:29 Labs: Lab Results 10/09/24 10/09/24 Range/Units 16:29 17:27 WBC 7.9 (4.5-11.0) X10^3/uL RBC 4.56 (4.0-5.2) X10^6/uL Hgb 14.3 (12.0-16.0) g/dL Hct 43.2 (36-46) % MCV 94.7 (80-100) fL MCH 31.3 (26-34) PG MCHC 33.1 (30-36) % RDW 15.1 H (11.6-14.8) % Plt Count 218 (150-400) X10^3/uL Neut % (Auto) 69.0 (50-75) % Lymph % (Auto) 24.0 L (25-40) % [place] % (Auto) 5.0 (3-14) % Eos % (Auto) 1.0 L (2-4) % Baso % (Auto) 1.0 (0-2) % Neut # (Auto) 5400 (4474-7900) /uL Lymph # (Auto) 1900 (1423-8697) /uL [place] # (Auto) 400 (0-900) /uL Eos # (Auto) 100 (0-450) /uL Baso # (Auto) 100 (0-100) /uL PT 10.8 (9.4-12.5) SECONDS INR 1.0 (0.9-1.3) APTT 33 (25.1-36.5) SECONDS Sodium 138 (137-145) mmol/L Potassium 3.4 (3.4-5.1) mmol/L Chloride 101 (98-107) mmol/L Carbon Dioxide 31 (22-32) mmol/L BUN 9 (7-17) mg/dL Creatinine 1.62 H (0.52-1.04) mg/dL Estimated GFR 37 L (>60) mL/min BUN/Creatinine Ratio 5.6 L (6-22) Glucose 113 H (70-100) mg/dL Calcium 9.5 (8.4-10.2) mg/dL Magnesium 2.1 (1.6-2.3) mg/dL Total Bilirubin 0.5 (0.2-1.3) mg/dL AST 25 (14-36) IU/L ALT 14 (<35) IU/L Alkaline Phosphatase 93 (38-126) U/L Total Creatine Kinase 115 (30-135) U/L Troponin I < 0.012 (0.01-0.034) ng/mL NT-Pro-B Natriuret Pep 330 H (<125) pg/mL Total Protein 6.6 (6.3-8.2) g/dL Albumin 4.4 (3.5-5.0) g/dL Globulin 2.2 (1.7-4.1) g/dL Albumin/Globulin Ratio 2.0 (1.0-2.8) Lipase 68 (23-300) U/L Urine RBC 0-1/hpf (0-5/HPF) Urine WBC >100/hpf H (0-5/HPF) Ur Squamous Epith Cells 0-1 /hpf (0-5/HPF) Calcium Oxalate Crystal Few H Urine Bacteria Many (>30) H (None) Urine Mucus 1+ H (Negative) Ur Culture Indicated? Specimen cultured Vol Urine Centrifuged 10ml (spun) Urine Dip Bedside Urine Glucose Negative Bedside Urine Bilirubin - Negative Bedside Urine Ketone - Negative Urine Specific [place] 1.015 Bedside Urine Occult Blood - Negative Bedside Urine pH 6.0 Bedside Urine Protein - Negative Bedside Urine Urobilinogen - Negative Bedside Urine Nitrite - Negative Bedside Urine Leukocytes - Negative Esterase Imaging Data CT scan - head: Radiologist's Impression: PROCEDURE: CT HEAD/BRAIN WO CON INDICATIONS: fall/no thinners, hit head and neck TECHNIQUE: Noncontrast 4.5 mm thick angled axial sections acquired from the foramen magnum to the vertex, with coronal and sagittal reformats. For radiation dose reduction, the following was used: automated exposure control, adjustment of mA and/or kV according to patient size. COMPARISON: None. FINDINGS: Image quality: Diagnostic. CSF spaces: Basal cisterns are patent. No extra-axial fluid collections. Ventricles are normal in size and shape. Brain: No midline shift. No intracranial masses or hemorrhage. [place]-white matter interface is normal. Skull and face: Calvarium and visualized facial bones are intact, without suspicious lesions. Sinuses: Visualized sinuses and mastoids are clear. IMPRESSION: No acute intracranial pathology. Approved by: Isiah Ruiz M.D. on 10/09/2024 at 15:16 CT - cervical spine: Radiologist's Impression: PROCEDURE: CT CERVICAL SPINE WO CON INDICATIONS: GLF, WORSENING BACK PAIN TECHNIQUE: Noncontrast 3 mm thick sections acquired from the skull base to the T4 level. Sagittal and coronal reformats were then constructed. For radiation dose reduction, the following was used: automated exposure control, adjustment of mA and/or kV according to patient size. COMPARISON: None. FINDINGS: Image quality: Excellent. Bones: No fractures or dislocations. Diffuse osteopenia. Mild cervical spondylosis. Visualized superior ribs are intact. Soft tissues: Prevertebral soft tissues are normal in thickness. No paravertebral hematomas. No apical pneumothoraces. IMPRESSION: No displaced fracture or traumatic subluxation. Diffuse osteopenia. Mild cervical spondylosis. Dictated by: Aníbal Hagen M.D. on 10/09/2024 at 19:57 Approved by: Aníbal Hagen M.D. on 10/09/2024 at 20:00 PROCEDURE: CT CERVICAL SPINE WO CON INDICATIONS: GLF, WORSENING BACK PAIN TECHNIQUE: Noncontrast 3 mm thick sections acquired from the skull base to the T4 level. Sagittal and coronal reformats were then constructed. For radiation dose reduction, the following was used: automated exposure control, adjustment of mA and/or kV according to patient size. COMPARISON: None. FINDINGS: Image quality: Excellent. Bones: No fractures or dislocations. Diffuse osteopenia. Mild cervical spondylosis. Visualized superior ribs are intact. Soft tissues: Prevertebral soft tissues are normal in thickness. No paravertebral hematomas. No apical pneumothoraces. IMPRESSION: No displaced fracture or traumatic subluxation. Diffuse osteopenia. Mild cervical spondylosis. Dictated by: Aníbal Hagen M.D. on 10/09/2024 at 19:57 Approved by: Aníbal Hagen M.D. on 10/09/2024 at 20:00 [facility] Narrative Medical decision making narrative: Nontoxic patient with worsening generalized weakness culminating in a fall today. Patient reports chronic lumbar pain but at this time denies any other complaints. It appears as though checking complaint was neck pain, but only a head CT was ordered from triage. Patient was able to move her lower extremities equally and has intact sensation. This appears to be a more global process rather than a focal process. Patient denies bowel or bladder incontinence, denies numbness in her legs or decreased sensation. Lab showed WBC count 7.9, hemoglobin 14.3, platelet count 218, sodium 138, potassium 3.4, creatinine 1.67, normal liver enzymes. Last lab values on record are from 2018. CT imaging of brain, C-spine, L-spine negative for acute traumatic findings. Urinalysis is positive for greater than 100 WBCs per high- powered field as well as many bacteria. Question if UTI could be contributing to patient's presentation. She was given a dose of Rocephin in the department. Patient able to ambulate to and from the bathroom with a walker unassisted, which is her baseline. All lab and imaging findings discussed with the patient and daughter at bedside. Daughter is comfortable taking patient home. Counseled the importance of Neurology follow up as well as strict ED return precautions. Discharge Plan Departure Patient Disposition: Home Clinical Impression: Generalized weakness, UTI (urinary tract infection) Instructions: DI for Urinary Tract Infection (UTI) Activity Restrictions/Additional Instructions: The CT scans of your head, neck, and lower back were all negative for fractures. Your laboratory work did not show any evidence of bloodstream infection or electrolyte abnormality. You did have a urinary tract infection seen here today. Antibiotics has been given to you today and a prescription has been sent to your pharmacy. Finish all of the medications. Follow up with your primary care doctor. Prescriptions: New cephalexin 500 mg capsule 500 mg PO Q12H Qty: 10 0RF No Action aripiprazole 10 mg tablet 10 mg PO DAILY prazosin 5 mg capsule 5 mg PO DAILY pantoprazole 40 mg tablet,delayed release (DR/EC) 40 mg PO DAILY lamotrigine 200 mg tablet 200 mg PO DAILY levothyroxine 88 mcg tablet 88 mcg PO DAILY venlafaxine 75 mg capsule,extended release 24hr 75 mg PO DAILY Referrals: Alee Jenkins PA-C [Primary Care Provider] - Stand Alone Forms: Patient Portal/API/Survey
[2024-10-09] MEDS: cefTRIAXone 2,000 MG in SODIUM CHLORIDE 0.9% 100 ML 200 MG IV (21:48)
== END 2024-10-09 22:49 | disposition home or self-care (01) ==
PROVIDERS: Emergency Medicine; Emergency Provider Emergency Medicine; PCP Physician Assistant
DX: R53.1 Weakness (principal); Z88.2 Allergy status to sulfonamides; I10 Essential (primary) hypertension; E03.9 Hypothyroidism, unspecified; Z86.79 Personal history of other diseases of the circulatory system; S09.90XA Unspecified injury of head, initial encounter; S19.9XXA Unspecified injury of neck, initial encounter; W18.30XA Fall on same level, unspecified, initial encounter; N39.0 Urinary tract infection, site not specified; M54.50 Low back pain, unspecified
CPT/HCPCS: 36415; 70450; 71045; 72125; 72131; 80053; 81003; 81015; 82550; 83690; 83735; 83880; 84484; 85025; 85610; 85730; 87077; 87086; 87186; 93005; 96365; 99284; J0696